=== PATIENT | female | born 1995 | race American Indian/Alaskan Native ===

== ENCOUNTER 2018-09-20 23:31 | Outpatient (CLI) | payer MEDICAID ==
--- NOTE | 2018-09-21 00:56 | Event Note ---
Date: 09/21/18 S: Pt presents to triage reporting strong contractions q5 minutes. Affirms positive movement. Denies LOF or vaginal bleeding O: FHT baseline 150 bpm, no decels, pos accels, mod variability Contractions q5 minutes lasting 60 seconds SVE /0 A: 23 yo at 37.2 wks EGA in early labor Membranes intact Coping well P: Recommend going home to rest with Benadryl Return to hospital with 3-1-1 contractions, SROM, or DFM Pt expresses understanding and agrees with plan
[2018-09-21] MEDS ORDERED: BENADRYL PO ONE (01:30)
== END 2018-09-21 01:31 | disposition home or self-care (01) ==
LOC: TRG 23:31
PROVIDERS: ATTEND Obstetrics & Gynecology
DX: O47.03 False labor before 37 completed weeks of gestation, third trimester (principal); Z3A.37 37 weeks gestation of pregnancy
CPT/HCPCS: 59025

== ENCOUNTER 2018-09-21 06:04 | Inpatient (IN) | payer MEDICAID ==
[2018-09-21] MEDS ORDERED: PHENERGAN PO PRN ×2 (06:34→20:10)
[2018-09-21] MEDS ORDERED: NARCAN 0.4 MG/1 ML IV PRN (06:34)
[2018-09-21] MEDS ORDERED: SUBLIMAZE IV PRN (06:34)
[2018-09-21] MEDS ORDERED: STADOL IV PRN (06:34)
[2018-09-21] MEDS ORDERED: NORMODYNE IV PRN (06:34)
[2018-09-21] MEDS ORDERED: BRETHINE IVP PRN (06:34)
[2018-09-21] MEDS ORDERED: AMPICILLIN/NS 2 GM/100 ML 2 GM/100 ML BAG IV ONE (06:34)
[2018-09-21] MEDS ORDERED: CALCIUM GLUCONATE IV ONE (06:34)
[2018-09-21] MEDS ORDERED: MINERAL OIL PO PRN (06:34)
[2018-09-21] MEDS ORDERED: MAGNESIUM SULFATE 4GM/100ML 4 GM/100 ML BAG IV ONE (06:34)
[2018-09-21] MEDS ORDERED: ZOFRAN IV PRN ×2 (06:34→20:10)
[2018-09-21] MEDS ORDERED: XYLOCAINE 2% INFILTRATI ONE (06:34)
[2018-09-21] MEDS ORDERED: NUBAIN IV PRN (06:34)
[2018-09-21] MEDS ORDERED: BRETHINE SUB-Q PRN (06:34)
[2018-09-21] MEDS ORDERED: PITOCin/NS 20 UNIT/1000ML DRIP 20 UNITS/1,000 ML BAG IV SCH ×3 (07:00→21:00)
[2018-09-21] MEDS ORDERED: PITOCin/NS 30 UNIT/500ML 30 UNITS/500 ML BAG IV SCH ×2 (07:00)
[2018-09-21] MEDS ORDERED: LACTATED RINGERS 1,000 ML IV SCH ×3 (07:00→21:00)
[2018-09-21] MEDS ORDERED: MAGNESIUM SULFATE 40GM/1000ML 40 GM/1,000 ML BAG IV SCH (07:00)
[2018-09-21 07:42] LABS: Hematocrit 31.8 % (30.3-42.9); Hemoglobin 10.6 gm/dl (10.1-14.3); Mean Corpuscular HGB Conc 33 % (30-34); Mean Corpuscular Volume 87 fl (79-97); Platelet Count 134 K/mm3 (140-440); Red Blood Count 3.66 M/mm3 (3.65-5.03); Red Cell Distribution Width 15.9 % (13.2-15.2)
[2018-09-21 07:57] LABS: BUN/Creatinine Ratio 3; Blood Urea Nitrogen 2 mg/dL (7-17); Calcium 9.1 mg/dL (8.4-10.2); Hemolysis Index 25
--- NOTE | 2018-09-21 08:29 | History and Physical Report ---
History of Present Illness Date of examination: 09/21/18 Date of admission: 09/21/18 06:46 Chief complaint: Contractions History of present illness: Pt is a 23 yo at 37.2 wks EGA who presents with contractions q3 minutes. She affirms positive FM and denies LOF or vaginal bleeding. Deneis GARY, scotomata, swelling. She received care at [facility]. Her has been complicated by Rubella equivocal status, quad screen positive for T21 with NIPT low risk, glucose intolerance, and GBS positive status. Past History Past Medical History: no pertinent history Past Surgical History: no surgical history Social history: no significant social history - Obstetrical History Expected Date of Delivery: 10/10/18 Actual Gestation: 37 Week(s) 2 Day(s) : 2 Para: 0 Hx # Term Pregnancies: 0 Number of Pregnancies: 0 Spontaneous Abortions: 1 Number of Living Children: 0 Medications and Allergies Allergies Allergy/AdvReac Type Severity Reaction Status Date / Time No Known Allergies Allergy Unverified 02/25/18 15:26 Home Medications Medication Instructions Recorded Confirmed Last Taken Type Ondansetron [Zofran Odt] 4 mg PO Q8HR PRN #10 tab.rapdis 02/25/18 Unknown Rx Active Meds: Active Medications Butorphanol Tartrate (Stadol) 2 mg IV Q2H PRN PRN Reason: Pain , Severe (7-10) Last Admin: 09/21/18 07:50 Dose: 2 mg Documented by: Ephedrine Sulfate (Ephedrine Sulfate) 10 mg IV Q2M PRN PRN Reason: Hypotension Fentanyl (Sublimaze) 100 mcg IV Q2H PRN PRN Reason: Labor Pain Hydralazine HCl (Apresoline) 5 mg IV Q30MIN PRN PRN Reason: Hypertension Oxytocin/Sodium Chloride (Pitocin/Ns 20 Unit/1000ml Drip) 20 units in 1,000 mls @ 125 mls/hr IV DIRECT POLY Oxytocin/Sodium Chloride (Pitocin/Ns 30 Unit/500ml) 30 units in 500 mls @ 1 mls/hr IV TITR POLY; Protocol Oxytocin/Sodium Chloride (Pitocin/Ns 30 Unit/500ml) 30 units in 500 mls @ 2 mls/hr IV TITR POLY; Protocol Lactated Ringer's (Lactated Ringers) 1,000 mls @ 125 mls/hr IV DIRECT POLY Last Admin: 09/21/18 07:45 Dose: 125 mls/hr Documented by: Oxytocin/Sodium Chloride (Pitocin/Ns 20 Unit/1000ml Drip) 20 units in 1,000 mls @ 0 mls/hr IV TITR POLY Magnesium Sulfate (Magnesium Sulfate 40gm/1000ml) 40 gm in 1,000 mls @ 25 mls/h r IV DIRECT POLY Ampicillin Sodium (Ampicillin/Ns 1 Gm/50 Ml) 1 gm in 50 mls @ 100 mls/hr IV Q4HR POLY; Protocol Lactated Ringer's (Lactated Ringers) 1,000 mls @ 125 mls/hr IV DIRECT POLY Labetalol HCl (Normodyne) 10 mg IV ONCE PRN PRN Reason: Hypertension Mineral Oil (Mineral Oil) 30 ml PO QHS PRN PRN Reason: Constipation Nalbuphine HCl (Nubain) 10 mg IV Q2H PRN PRN Reason: Pain, Moderate (4-6) Naloxone HCl (Narcan 0.4 Mg/1 Ml) 0.1 mg IV Q2MIN PRN PRN Reason: Res Rate </= 8 or 02 SAT < 92% Ondansetron HCl (Zofran) 4 mg IV Q8H PRN PRN Reason: Nausea And Vomiting Promethazine HCl (Phenergan) 25 mg PO Q6H PRN PRN Reason: Nausea And Vomiting Terbutaline Sulfate (Brethine) 0.25 mg SUB-Q ONCE PRN PRN Reason: Hyperstimulation/Hypertonicity Terbutaline Sulfate (Brethine) 0.25 mg IVP ONCE PRN PRN Reason: Hyperstimulation/Hypertonicity Review of Systems All systems: negative Eyes: no blurred vision Ears, nose, mouth and throat: no headache Cardiovascular: no chest pain, no shortness of breath, no leg edema Gastrointestinal: diarrhea, no nausea, no vomiting Genitourinary: no vaginal bleeding, no leakage of fluid Neurological: no seizures - Vital Signs Vital signs: Vital Signs Pulse BP 68 171/96 09/21/18 06:25 09/21/18 06:25 Temp Pulse Resp BP Pulse Ox 77 137/68 09/21/18 08:10 09/21/18 08:10 - Physical Exam Cardiovascular: Regular rate, Normal S1, Normal S2, No murmurs Lungs: Positive: Clear to auscultation, Normal air movement Abdomen: Positive: soft. Negative: distention, tenderness Genitourinary (Female): Positive: normal external genitalia, normal perenium Vagina: Positive: normal moisture Uterus: Positive: enlarged (gravid), normal contour Extremities: Positive: normal - Obstetrical FHR: category 1 Uterine Contraction Monitor Mode: External Cervical Dilatation: 3.5 Cervical Effacement Percentage: 90 station: 0 Uterine Contraction Frequency (min): 5 Uterine Contraction Pattern: Regular Uterine Tone Measurement Phase: Contraction Uterine Contraction Intensity: Strong/Firm Results Result Diagrams: 09/21/18 07:00 09/21/18 07:00 Abnormal lab results 09/21/18 09/21/18 Range/Units 07:00 07:00 WBC 11.2 H (4.5-11.0) K/mm3 RDW 15.9 H (13.2-15.2) % Plt Count 134 L (140-440) K/mm3 Potassium 3.0 L (3.6-5.0) mmol/L BUN 2 L (7-17) mg/dL Glucose 103 H (65-100) mg/dL All other labs normal. Assessment and Plan A: 23 yo at 37.2 wks EGA Early labor Preeclampsia with severe features SROM in triage, clear fluid GBS positive P: Admit to L&D Initiate Magnesium Sulfate and rescue Labetalol Ampicillin prophylaxis Monitor closely Augment with Pitocin Pain relief as requested Anticipate
[2018-09-21] MEDS ORDERED: BENADRYL PO PRN ×2 (09:00→20:10)
[2018-09-21] MEDS ORDERED: AMPICILLIN/NS 1 GM/50 ML 1 GM/50 ML BAG IV SCH (10:44)
[2018-09-21] MEDS ORDERED: MARCAINE 0.25% INFILTRATI ONE ×2 (10:46→17:09)
--- NOTE | 2018-09-21 11:09 | Anesthesia Consultation ---
Anesthesia Consult and Med Hx Date of service: 09/21/18 - Airway Anesthetic Teeth Evaluation: Good ROM Head & Neck: Adequate Mental/Hyoid Distance: Adequate Mallampati Class: Class II Intubation Access Assessment: Good - Pulmonary Exam CTA: Yes - Cardiac Exam Cardiac Exam: RRR - Pre-Operative Health Status ASA Pre-Surgery Classification: ASA2, Emergency Proposed Anesthetic Plan: Epidural - Pulmonary Hx Asthma: No COPD: No Hx Pneumonia: No - Cardiovascular System Hx Hypertension: No - Central Nervous System Hx Seizures: No Hx Psychiatric Problems: No - Endocrine Hx Renal Disease: No Hx End Stage Renal Disease: No Hx Hypothyroidism: No Hx Hyperthyroidism: No - Hematic Hx Anemia: No Hx Sickle Cell Disease: No - Other Systems Hx Alcohol Use: No
[2018-09-21] MEDS ORDERED: NARCAN 2 MG/2 ML IV PRN (11:10)
[2018-09-21] MEDS ORDERED: fentaNYL-BUPIV 2 MCG/ML-0.125% 200 MCG/100 ML BAG EPIDURAL SCH (12:00)
--- NOTE | 2018-09-21 17:58 | Event Note ---
Date: 09/21/18 Pt's SVE is 780/0 swollen anterior lip. Discussed r/b/a of IUPC, pt elects for it. Placed IUPC without blood flashback, pt tolerated well, FHT category 1 throughout.
[2018-09-21] MEDS ORDERED: BENADRYL ONE (19:11)
[2018-09-21] MEDS: APRESOLINE IV PRN ×3 (19:13→21:55)
[2018-09-21] MEDS ORDERED: CYTOTEC ONE (19:52)
[2018-09-21] MEDS ORDERED: CYTOTEC PR ONE (19:55)
--- NOTE | 2018-09-21 20:01 | Procedure Note ---
OB Delivery Note - Delivery Date of Delivery: 09/21/18 Surgeon: DARLENE BRADFORD ([facility]) Estimated blood loss: 200cc - Vaginal Delivery presentation: vertex Delivery position: OA Intrapartum events: PROM->1hr before delivery, preeclampsia Delivery induction: none Delivery augmentation: pitocin Delivery monitor: external FHT, external uterine Route of delivery: Delivery placenta: expressed Delivery cord: 3 umbilical vessels Episiotomy: none Delivery laceration: none Anesthesia: epidural Delivery comments: Excellent maternal effort resulted in of viable male infant at 1939. Head delivered OA, restituted LOT. Shoulders followed easily. Cord clamped and cut by FOB. Placenta delivered intact at 194. Minimal bleeding noted. Fundus boggy after delivery of placenta, ATTILA firm. Pitocin IV administered. No lacerations noted. Fundus then firm, Cytotec 800mcg administered RI for prophylaxis of delayed hemorrhage. - A at 1 minute: 8 at 5 minutes: 9 Infant Gender: Male
[2018-09-21] MEDS ORDERED: LANSINOH TP PRN (20:10)
[2018-09-21] MEDS ORDERED: DULCOLAX PR PRN (20:10)
[2018-09-21] MEDS ORDERED: TUCKS PAD TP PRN (20:10)
[2018-09-21] MEDS ORDERED: TYLENOL PO PRN (20:10)
[2018-09-21] MEDS ORDERED: MILK OF MAGNESIA PO PRN (20:10)
[2018-09-21] MEDS ORDERED: PHENERGAN PR PRN (20:10)
[2018-09-21] MEDS ORDERED: SODIUM CHLORIDE FLUSH SYRINGE 10 ML IV NR (21:00)
[2018-09-22] MEDS ORDERED: M-M-R II VACCINE SUB-Q ONE (06:00)
--- NOTE | 2018-09-22 06:58 | Post Anesthesia Evaluation ---
- Post Anesthesia Evaluation Patient Participated: Yes Airway Patent: Yes Stable Respiratory Function: Yes Nausea/Vomiting: No Temp > 96.8F: Yes Pain Manageable: Yes Adequeate Hydration: Yes Anesthesia Complications: No Block Receding Appropriately: Yes Patient on Ventilator: No
--- NOTE | 2018-09-22 08:04 | Progress Note ---
Assessment and Plan A/P PPD1 s/p pree E on mag until 2pm ( duration of 24hrs PP) mag levels and neuro checks PIH w/u await PP cbc ( uterine atony ) Subjective - Subjective Date of service: 09/22/18 Principal diagnosis: , severe Pre E Patient reports: appetite normal, voiding normally, pain well controlled, flatus, ambulating normally [place]: doing well Objective - Vital Signs Latest vital signs: Vital Signs Temp Pulse BP Pulse Ox 09/22/18 07:47 81 145/73 09/22/18 07:32 88 163/78 09/22/18 07:17 85 162/78 09/22/18 07:02 93 H 157/74 09/22/18 06:47 85 158/74 09/22/18 06:32 96 H 150/70 09/22/18 06:17 89 148/67 09/22/18 06:02 96 H 154/68 09/22/18 05:47 100 H 137/63 09/22/18 05:32 108 H 138/70 09/22/18 05:17 96 H 145/67 09/22/18 05:02 113 H 137/67 09/22/18 04:47 100 H 150/67 09/22/18 04:32 103 H 147/65 09/22/18 04:17 105 H 153/66 09/22/18 04:02 106 H 152/69 09/22/18 03:47 106 H 149/63 09/22/18 03:32 103 H 147/65 09/22/18 03:17 113 H 156/67 09/22/18 03:02 116 H 157/69 09/22/18 02:47 115 H 156/72 09/22/18 02:32 109 H 154/72 09/22/18 02:17 103 H 152/75 09/22/18 02:02 130 H 150/70 09/22/18 01:47 120 H 161/72 09/22/18 01:32 116 H 159/72 09/22/18 01:17 114 H 155/70 09/22/18 01:02 114 H 155/68 09/22/18 00:47 126 H 159/69 09/22/18 00:32 123 H 156/70 09/22/18 00:17 116 H 156/71 09/22/18 00:02 108 H 164/76 09/21/18 23:47 125 H 158/67 09/21/18 23:32 117 H 160/70 09/21/18 23:17 113 H 158/69 09/21/18 23:02 130 H 143/62 09/21/18 22:47 123 H 137/61 09/21/18 22:32 126 H 152/62 09/21/18 22:17 126 H 157/71 09/21/18 22:02 120 H 158/74 09/21/18 21:55 108 H 172/82 09/21/18 21:47 108 H 172/82 09/21/18 21:32 125 H 170/79 09/21/18 21:17 118 H 160/73 09/21/18 21:02 112 H 160/95 09/21/18 20:47 121 H 187/97 09/21/18 20:34 121 H 184/89 09/21/18 20:32 131 H 227/135 09/21/18 20:17 126 H 179/99 09/21/18 20:04 110 H 171/102 09/21/18 19:47 114 H 179/97 09/21/18 19:34 120 H 176/97 09/21/18 19:22 112 H 100 09/21/18 19:17 114 H 98 09/21/18 19:13 98 H 168/84 09/21/18 19:12 108 H 99 09/21/18 19:07 109 H 98 09/21/18 19:02 103 H 99 09/21/18 18:59 96 H 163/79 09/21/18 18:57 96 H 100 09/21/18 18:56 98 H 168/84 09/21/18 18:52 110 H 98 09/21/18 18:47 105 H 99 09/21/18 18:42 96 H 99 09/21/18 18:37 103 H 100 09/21/18 18:32 97 H 100 09/21/18 18:27 94 H 99 09/21/18 18:26 93 H 145/77 09/21/18 18:22 94 H 100 09/21/18 18:17 94 H 100 09/21/18 18:12 99 H 100 09/21/18 18:07 93 H 99 09/21/18 18:02 91 H 99 09/21/18 17:57 95 H 99 09/21/18 17:56 98 H 149/87 09/21/18 17:52 94 H 99 09/21/18 17:47 88 100 09/21/18 17:42 91 H 100 09/21/18 17:37 92 H 100 09/21/18 17:32 98 H 99 09/21/18 17:27 97 H 100 09/21/18 17:26 90 133/73 09/21/18 17:22 95 H 100 09/21/18 17:17 105 H 100 09/21/18 17:12 98 H 98 09/21/18 17:09 100 H 165/79 09/21/18 17:07 105 H 100 09/21/18 17:02 111 H 100 09/21/18 16:57 93 H 99 09/21/18 16:52 94 H 99 09/21/18 16:47 101 H 98 09/21/18 16:42 91 H 97 09/21/18 16:37 89 97 09/21/18 16:32 89 97 09/21/18 16:27 89 99 09/21/18 16:23 89 165/85 09/21/18 16:22 105 H 98 09/21/18 16:17 109 H 98 09/21/18 16:13 94 H 165/86 09/21/18 16:12 96 H 99 09/21/18 16:07 96 H 98 09/21/18 16:02 92 H 98 09/21/18 15:58 94 H 158/82 09/21/18 15:57 99 H 98 09/21/18 15:52 107 H 99 09/21/18 15:47 104 H 98 09/21/18 15:43 94 H 158/80 09/21/18 15:42 98 H 99 09/21/18 15:38 99 H 148/76 09/21/18 15:37 101 H 99 09/21/18 15:32 106 H 99 09/21/18 15:28 94 H 175/94 09/21/18 15:27 94 H 97 09/21/18 15:22 92 H 98 09/21/18 15:17 98 H 99 09/21/18 15:13 95 H 165/87 09/21/18 15:12 100 H 98 09/21/18 15:07 98 H 100 09/21/18 15:02 102 H 100 09/21/18 15:00 95 H 168/91 09/21/18 14:57 99 H 99 09/21/18 14:52 101 H 100 09/21/18 14:51 100 H 94 09/21/18 14:47 99 H 100 09/21/18 14:43 83 157/88 09/21/18 14:42 87 100 09/21/18 14:37 87 100 09/21/18 14:32 82 100 09/21/18 14:28 81 158/88 09/21/18 14:27 84 100 09/21/18 14:22 89 100 09/21/18 14:17 92 H 100 09/21/18 14:14 88 159/89 09/21/18 14:12 90 100 09/21/18 14:07 100 H 100 09/21/18 14:02 105 H 99 09/21/18 13:59 87 154/78 09/21/18 13:58 93 H 174/86 09/21/18 13:57 84 100 09/21/18 13:52 79 100 09/21/18 13:47 83 100 09/21/18 13:43 80 159/80 09/21/18 13:42 80 99 09/21/18 13:37 83 100 09/21/18 13:32 107 H 99 09/21/18 13:28 82 142/86 09/21/18 13:27 85 99 09/21/18 13:22 90 100 09/21/18 13:17 91 H 100 09/21/18 13:13 93 H 150/81 94 09/21/18 13:12 84 99 09/21/18 13:07 81 100 09/21/18 13:02 76 100 09/21/18 12:58 76 145/72 09/21/18 12:57 77 100 09/21/18 12:52 76 100 09/21/18 12:47 85 100 09/21/18 12:44 75 132/72 09/21/18 12:42 84 100 09/21/18 12:37 84 100 09/21/18 12:32 81 99 09/21/18 12:29 83 88 09/21/18 12:28 75 136/64 09/21/18 12:27 78 98 09/21/18 12:22 75 99 09/21/18 12:17 77 99 09/21/18 12:13 75 136/65 09/21/18 12:12 75 98 09/21/18 12:07 77 99 09/21/18 12:02 71 99 09/21/18 11:58 72 127/62 09/21/18 11:57 72 99 09/21/18 11:52 71 99 09/21/18 11:47 70 99 09/21/18 11:43 70 130/61 09/21/18 11:42 72 99 09/21/18 11:37 69 99 09/21/18 11:32 71 98 09/21/18 11:28 69 129/60 09/21/18 11:27 71 99 09/21/18 11:22 70 98 09/21/18 11:17 74 98 09/21/18 11:12 73 122/57 99 09/21/18 11:09 89 146/66 09/21/18 11:07 91 H 99 09/21/18 11:06 97 H 151/84 09/21/18 11:03 96 H 166/89 09/21/18 11:02 100 H 99 09/21/18 10:57 93 H 100 09/21/18 10:55 78 178/106 09/21/18 10:52 85 100 09/21/18 10:45 77 174/86 09/21/18 10:38 77 167/86 09/21/18 10:29 75 174/89 09/21/18 10:12 90 182/94 09/21/18 10:11 97 H 186/91 09/21/18 09:39 73 156/78 09/21/18 08:50 98.0 F 09/21/18 08:40 68 148/76 09/21/18 08:37 73 136/75 09/21/18 08:10 77 137/68 Intake and Output 09/21/18 09/22/18 09/22/18 23:59 07:59 15:59 Intake Total 615 2700 Output Total 3500 3700 Balance -2885 -1000 Intake: IV 375 1000 MAGNESIUM SULFATE 40GM/ 150 400 1000ML 40 gm In 1,000 ml @ 1 GM/HR 25 mls/hr IV DIRECT POLY Rx#:[id number] PITOCin/NS 20 UNIT/1000ML 225 600 DRIP 20 units In 1,000 ml @ 250 mls/hr IV DIRECT POLY Rx#:[id number] Oral 240 1700 Output: Urine 3500 3700 Indwelling Catheter 3500 3700 Other: Total, Intake Amount 240 250 Total, Output Amount 400 300 Estimated Blood Loss 200 - Exam Breasts: Present: normal Cardiovascular: Present: Regular rate, Normal S1 Lungs: Present: Clear to auscultation, Normal air movement Abdomen: Present: normal appearance, soft, normal bowel sounds. Absent: distention, tenderness, guarding Vulva: both: normal Uterus: Present: normal, firm, fundal height below umbilicus. Absent: bogginess, tenderness Extremities: Present: normal Deep Tendon Reflex Grade: Normal +2 - Labs Labs: Abnormal lab results 09/21/18 09/22/18 Range/Units 20:33 02:12 Magnesium 4.20 H 5.30 H (1.7-2.3) mg/dL
[2018-09-22 08:22] LABS: Hematocrit 31.1 % (30.3-42.9); Hemoglobin 10.5 gm/dl (10.1-14.3); Mean Corpuscular HGB Conc 34 % (30-34); Mean Corpuscular Volume 86 fl (79-97); Platelet Count 149 K/mm3 (140-440); Red Blood Count 3.61 M/mm3 (3.65-5.03); Red Cell Distribution Width 16.4 % (13.2-15.2)
[2018-09-22] MEDS: PERCOCET 5/325 PO PRN ×2 (08:27→19:48)
[2018-09-22] MEDS: NORMODYNE PO SCH ×2 (08:28→21:53)
[2018-09-22 08:43] LABS: Alanine Aminotransferase 11 units/L (7-56); Uric Acid 4.5 mg/dL (3.5-7.6)
[2018-09-22] MEDS: IBUPROFEN PO SCH ×3 (09:00→23:57)
[2018-09-22] MEDS: PRENATAL VITAMIN PO SCH (09:52)
[2018-09-22] MEDS: FEOSOL PO SCH ×2 (09:53→21:52)
[2018-09-22] MEDS: COLACE PO SCH ×2 (10:00→21:52)
[2018-09-22] MEDS ORDERED: SODIUM CHLORIDE FLUSH SYRINGE 10 ML IV PRN (13:00)
[2018-09-22] MEDS ORDERED: TYLENOL PO PRN (13:30)
[2018-09-22] MEDS ORDERED: TUCKS PAD TP PRN (13:30)
[2018-09-22] MEDS ORDERED: ZOFRAN IV PRN (13:30)
[2018-09-22] MEDS ORDERED: LANSINOH TP PRN (13:30)
[2018-09-22] MEDS ORDERED: PHENERGAN PR PRN (13:30)
[2018-09-22] MEDS ORDERED: PHENERGAN PO PRN (13:30)
[2018-09-22] MEDS ORDERED: BENADRYL PO PRN (14:00)
[2018-09-22] MEDS ORDERED: ANUCORT-HC PR PRN (14:00)
[2018-09-22] MEDS ORDERED: TORADOL IV PRN (14:00)
[2018-09-22] MEDS ORDERED: IBUPROFEN PO SCH (14:00)
[2018-09-22] MEDS ORDERED: NORCO 5/325 PO PRN (14:00)
[2018-09-22] MEDS ORDERED: MILK OF MAGNESIA PO PRN (22:00)
[2018-09-22] MEDS ORDERED: DULCOLAX PR PRN (22:00)
[2018-09-23 00:55] LABS: Hematocrit 27.4 % (30.3-42.9)
[2018-09-23 01:41] LABS: Bilirubin,Urine NEG (Negative); Blood,Urine LG (Negative); Color,Urine Yellow (Yellow); Hyaline Casts,Urine 2 /LPF; Mucus,Urine FEW /HPF; Protein,Urine <15 mg/dL mg/dL (Negative); Urobilinogen,Urine < 2.0 mg/dL (<2.0)
[2018-09-23 01:44] LABS: RBC,Urine > 182.0 /HPF (0.0-6.0)
[2018-09-23] MEDS: IBUPROFEN PO SCH ×3 (05:55→22:20)
[2018-09-23] MEDS ORDERED: BOOSTRIX IM ONE (06:00)
--- NOTE | 2018-09-23 08:17 | Progress Note ---
Assessment and Plan A/P PPD2 s/p pree E s/p mag on labetolol for BP control continue to watch BP consider d/c home with f/u in 1 weeks tomorrow as BP revi ewed Subjective - Subjective Date of service: 09/23/18 Principal diagnosis: , severe Pre E Patient reports: appetite normal, voiding normally, pain well controlled, flatus, ambulating normally : doing well Objective - Vital Signs Latest vital signs: Vital Signs Temp Pulse Resp BP BP Pulse Ox 09/23/18 05:55 20 09/23/18 05:00 98.3 F 71 16 134/75 98 09/22/18 23:57 20 09/22/18 23:31 98.5 F 78 16 129/68 98 09/22/18 21:53 72 155/95 09/22/18 20:37 98.4 F 79 20 149/94 99 09/22/18 20:07 88 158/90 09/22/18 19:57 88 166/88 09/22/18 19:34 97.4 F L 18 09/22/18 19:28 90 141/87 09/22/18 18:57 88 157/103 09/22/18 18:27 85 156/99 09/22/18 17:57 90 150/95 09/22/18 17:27 85 133/87 09/22/18 16:57 88 130/89 09/22/18 16:31 86 144/83 09/22/18 15:57 88 134/85 09/22/18 15:27 96 H 146/68 09/22/18 14:57 76 136/76 09/22/18 14:27 88 139/84 09/22/18 13:57 83 133/70 09/22/18 13:27 89 130/70 09/22/18 12:57 86 120/56 09/22/18 12:27 78 129/58 09/22/18 11:57 82 132/79 09/22/18 11:27 84 131/75 09/22/18 10:57 90 131/67 09/22/18 10:27 87 132/65 09/22/18 09:57 81 142/73 09/22/18 09:47 86 135/71 09/22/18 09:27 85 139/91 09/22/18 08:57 85 160/94 09/22/18 08:28 166/104 09/22/18 08:27 16 09/22/18 08:25 90 166/104 09/22/18 08:17 84 145/74 Intake and Output 09/22/18 09/23/18 09/23/18 23:59 07:59 15:59 Intake Total 240 Output Total 1600 Balance -1600 240 Intake: Intake, Free Water 240 Output: Urine 1600 Indwelling Catheter 1000 Void 600 Other: Total, Output Amount 600 # Voids Void 1 1 - Exam Breasts: Present: normal Cardiovascular: Present: Regular rate, Normal S1 Lungs: Present: Clear to auscultation, Normal air movement Abdomen: Present: normal appearance, soft, normal bowel sounds. Absent: distention, tenderness, guarding Uterus: Present: normal, firm, fundal height below umbilicus. Absent: bogginess, tenderness Extremities: Present: normal Deep Tendon Reflex Grade: Normal +2 Incision: Present: normal, dry - Labs Labs: Abnormal lab results 09/22/18 09/22/18 09/22/18 Range/Units 00:50 08:12 08:12 WBC 16.8 H (4.5-11.0) K/mm3 RBC 3.61 L (3.65-5.03) M/mm3 Hgb (10.1-14.3) gm/dl Hct (30.3-42.9) % RDW 16.4 H (13.2-15.2) % Creatinine (0.7-1.2) mg/dL Magnesium 5.90 H (1.7-2.3) mg/dL Lactate Dehydrogenase (91-180) units/L Urine WBC (Auto) 26.0 H (0.0-6.0) /HPF 09/22/18 09/22/18 09/22/18 Range/Units 08:12 14:37 21:13 WBC (4.5-11.0) K/mm3 RBC (3.65-5.03) M/mm3 Hgb (10.1-14.3) gm/dl Hct (30.3-42.9) % RDW (13.2-15.2) % Creatinine 0.6 L (0.7-1.2) mg/dL Magnesium 6.40 H 4.60 H (1.7-2.3) mg/dL Lactate Dehydrogenase 467 H (91-180) units/L Urine WBC (Auto) (0.0-6.0) /HPF 09/23/18 Range/Units 00:45 WBC (4.5-11.0) K/mm3 RBC (3.65-5.03) M/mm3 Hgb 9.0 L (10.1-14.3) gm/dl Hct 27.4 L (30.3-42.9) % RDW (13.2-15.2) % Creatinine (0.7-1.2) mg/dL Magnesium (1.7-2.3) mg/dL Lactate Dehydrogenase (91-180) units/L Urine WBC (Auto) (0.0-6.0) /HPF
[2018-09-23] MEDS: NORMODYNE PO SCH ×2 (09:40→22:20)
[2018-09-23] MEDS: PRENATAL VITAMIN PO SCH (09:40)
[2018-09-23] MEDS: FEOSOL PO SCH ×3 (09:41→22:20)
[2018-09-23] MEDS: COLACE PO SCH ×2 (09:42→22:21)
[2018-09-23] MEDS ORDERED: M-M-R II VACCINE SUB-Q ONE (11:00)
[2018-09-24] MEDS: IBUPROFEN PO SCH ×2 (04:26→10:21)
[2018-09-24] MEDS ORDERED: BOOSTRIX IM ONE (06:00)
--- NOTE | 2018-09-24 08:38 | Progress Note ---
Assessment and Plan A: PPD3 s/p mag sulfate for preeclampsia with severe features VSS, CBC stable P: Discharge to home today PO Labetalol rx Return to clinic in 1 week for BP check Reviewed preeclampsia symptoms and when to report to hospital Subjective - Subjective Date of service: 09/24/18 Principal diagnosis: , severe Pre E Interval history: Pt is PPD3 s/p following augmentation of labor for severe preeclampsia at term. No lacs, EBL 200. Patient reports: appetite normal, voiding normally, pain well controlled, ambulating normally [place]: doing well, bottle feeding Objective - Vital Signs Latest vital signs: Vital Signs Temp Pulse Resp BP BP Pulse Ox 09/24/18 00:30 98.8 F 67 18 123/79 09/23/18 22:20 77 141/71 09/23/18 16:54 99.1 F 79 16 150/86 99 09/23/18 16:32 20 Intake and Output 09/23/18 09/24/18 09/24/18 23:59 07:59 15:59 Intake Total 300 Balance 300 Intake: Intake, Free Water 300 - Exam Cardiovascular: Present: Regular rate, Normal S1, Normal S2, No murmurs Lungs: Present: Clear to auscultation, Normal air movement Abdomen: Present: normal appearance, soft. Absent: distention, tenderness, guarding Uterus: Present: normal, firm, fundal height below umbilicus Extremities: Present: normal
--- NOTE | 2018-09-24 08:39 | Discharge Summary ---
Providers - Providers Date of Admission: 09/21/18 06:46 Date of discharge: 09/24/18 Attending physician: QUINN URRUTIA 09/21/18 20:12 Consult to Social Work Instructor [CONS] Routine Reason For Exam: assistance with , SNS Primary care physician: QUINN URRUTIA Hospitalization Reason for admission: other (Preeclampsia with severe features in early labor) Delivery: Episiotomy: none Laceration: none Other procedures: none complications: none Discharge diagnosis: IUP at term delivered Terry baby: male Condition at discharge: Good Disposition: DC-01 TO HOME OR SELFCARE Plan - Discharge Medications Prescriptions: Docusate Sodium [Colace] 100 mg PO BID PRN #30 capsule PRN Reason: Constipation Ferrous Sulfate [Ferrous Sulfate 324 MG] 324 mg PO BID #60 tablet. Labetalol [Labetalol 200mg TAB] 200 mg PO BID #60 tablet Ibuprofen [Motrin] 800 mg PO Q8HR PRN #90 tablet PRN Reason: Pain, Moderate (4-6) - Provider Discharge Summary Activity: routine, no sex for 6 weeks, no heavy lifting 4 weeks, no strenuous exercise Diet: routine Instructions: routine Additional instructions: [] Smoking cessation referral if applicable(refer to patient education folder for contact #) [] Refer to [facility] Booklet Call your doctor immediately for: * Fever > 100.5 * Heavy vaginal bleeding ( >1 pad per hour) * Severe persistent headache * Shortness of breath * Reddened, hot, painful area to leg or breast * Drainage or odor from incision. * Keep incision clean and dry at all times and follow doctor's instructions regarding bathing/showering - Follow up plan Follow up: QUINN URRUTIA MD [Primary Care Provider] - 7 Days
[2018-09-24] MEDS: COLACE PO SCH (10:19)
[2018-09-24] MEDS: FEOSOL PO SCH (10:19)
[2018-09-24] MEDS: PRENATAL VITAMIN PO SCH (10:20)
[2018-09-24] MEDS: NORMODYNE PO SCH (10:23)
[2018-09-24 14:41] VITALS: BP 114/68
== END 2018-09-24 15:22 | disposition home or self-care (01) | DRG 774 ==
LOC: TRG 06:04 → LD 06:46 → OB 09-22 20:21
PROVIDERS: ADMIT Obstetrics & Gynecology; ATTEND Obstetrics & Gynecology
PROC: 10E0XZZ Delivery of Products of Conception, External Approach (ICD-10-PCS; principal; 2018-09-21)
PROC: 10H07YZ Insertion of Other Device into Products of Conception, Via Natural or Artificial Opening (ICD-10-PCS; 2018-09-21)
PROC: 3E0R3BZ Introduction of Anesthetic Agent into Spinal Canal, Percutaneous Approach (ICD-10-PCS; 2018-09-21)
PROC: 00HU33Z Insertion of Infusion Device into Spinal Canal, Percutaneous Approach (ICD-10-PCS; 2018-09-21)
PROC: 3E0234Z Introduction of Serum, Toxoid and Vaccine into Muscle, Percutaneous Approach (ICD-10-PCS; 2018-09-22)
PROC: 3E0234Z Introduction of Serum, Toxoid and Vaccine into Muscle, Percutaneous Approach (ICD-10-PCS; 2018-09-23)
DX: O99.824 Streptococcus B carrier state complicating childbirth (principal); O14.14 Severe pre-eclampsia complicating childbirth; O42.92 Full-term premature rupture of membranes, unspecified as to length of time between rupture and onset of labor; Z3A.37 37 weeks gestation of pregnancy; Z37.0 Single live birth; Z23 Encounter for immunization
CPT/HCPCS: 36415; 59025; 80048; 81001; 82565; 83615; 83735; 84450; 84460; 84550; 85014; 85018; 85027; 86592; 86850; 86900; 86901; 87086; 88307; 90715; G0378; J0290; J0360; J0595; J1200; J2590; J3010; J3475; J7120

== ENCOUNTER 2019-01-07 09:25 | Emergency (ER) | payer SELFPAY ==
[2019-01-07 09:32] VITALS: BP 142/81
[2019-01-07] MEDS ORDERED: KETOROLAC 60 MG/2 ML INJ IM ONE (10:18)
--- NOTE | 2019-01-07 10:30 | Emergency Department Report ---
ED General Adult HPI - General Chief complaint: Rectal Pain Stated complaint: BOTTOM HURTING BADLY Source: patient Mode of arrival: Ambulatory Limitations: No Limitations - History of Present Illness Initial comments: 23yo BF states that she has had discomfort of her buttock for a week but pain became severe as of yesterday. She states that the pain is a 10. She further states that the pain is worse with movement and when lying down. -: Gradual, week(s) Location: buttocks Radiation: non-radiation Severity scale (0 -10): 10 Quality: aching, sharp Consistency: constant Improves with: immobilization Worsens with: movement Associated Symptoms: denies other symptoms Treatments Prior to Arrival: none - Related Data Previous Rx's Medication Instructions Recorded Last Taken Type Docusate Sodium [Colace] 100 mg PO BID PRN #30 capsule 09/24/18 Unknown Rx Ferrous Sulfate [Ferrous Sulfate 324 mg PO BID #60 tablet. 09/24/18 Unknown Rx 324 MG] Ibuprofen [Motrin] 800 mg PO Q8HR PRN #90 tablet 09/24/18 Unknown Rx Labetalol [Labetalol 200mg TAB] 200 mg PO BID #60 tablet 09/24/18 Unknown Rx Clindamycin [Clindamycin CAP] 300 mg PO Q8H 10 Days #30 cap 01/07/19 Unknown Rx HYDROcodone/APAP 5-325 [Swain 1 each PO Q4HR PRN #8 tablet 01/07/19 Unknown Rx 5/325] Allergies Allergy/AdvReac Type Severity Reaction Status Date / Time No Known Allergies Allergy Unverified 02/25/18 15:26 ED Review of Systems ROS: Stated complaint: BOTTOM HURTING BADLY Other details as noted in HPI Comment: All other systems reviewed and negative Skin: as per HPI ED Past Medical Hx - Past Medical History Previous Medical History?: No Hx Hypertension: No Hx Congestive Heart Failure: No Hx Diabetes: No Hx Deep Vein Thrombosis: No Hx Renal Disease: No Hx Sickle Cell Disease: No Hx Seizures: No Hx Asthma: No Hx COPD: No Hx HIV: No - Surgical History Past Surgical History?: No - Social History Smoking Status: Never Smoker Substance Use Type: Marijuana - Medications Home Medications: Home Medications Medication Instructions Recorded Confirmed Last Taken Type Docusate Sodium [Colace] 100 mg PO BID PRN #30 capsule 09/24/18 Unknown Rx Ferrous Sulfate [Ferrous Sulfate 324 mg PO BID #60 tablet. 09/24/18 Unknown Rx 324 MG] Ibuprofen [Motrin] 800 mg PO Q8HR PRN #90 tablet 09/24/18 Unknown Rx Labetalol [Labetalol 200mg TAB] 200 mg PO BID #60 tablet 09/24/18 Unknown Rx Clindamycin [Clindamycin CAP] 300 mg PO Q8H 10 Days #30 cap 01/07/19 Unknown Rx HYDROcodone/APAP 5-325 [Swain 1 each PO Q4HR PRN #8 tablet 01/07/19 Unknown Rx 5/325] ED Physical Exam - General Limitations: No Limitations General appearance: alert, in no apparent distress - Head Head exam: Present: atraumatic, normocephalic - Eye Eye exam: Present: normal appearance, PERRL, EOMI - ENT ENT exam: Present: normal exam, normal orophraynx - Neck Neck exam: Present: normal inspection, full ROM. Absent: tenderness - Respiratory Respiratory exam: Present: normal lung sounds bilaterally, respiratory distress. Absent: chest wall tenderness - Cardiovascular Cardiovascular Exam: Present: regular rate, normal rhythm, normal heart sounds - GI/Abdominal GI/Abdominal exam: Present: soft. Absent: distended, tenderness - Rectal Rectal exam: Present: normal rectal tone, tenderness (appreciated at the gluteal cleft and swelling present as well). Absent: bloody stool, hemorrhoids - Extremities Exam Extremities exam: Present: normal inspection, full ROM. Absent: tenderness - Back Exam Back exam: Present: normal inspection, full ROM, tenderness (lower midback) - Neurological Exam Neurological exam: Present: alert, altered, oriented X3 - Psychiatric Psychiatric exam: Present: normal affect, normal mood. Absent: depressed - Skin Skin exam: Present: warm, dry, other (inflamed at gluteal cleft) ED Course Vital Signs 01/07/19 09:29 Temperature 97.5 F L Pulse Rate 89 Respiratory 16 Rate Blood Pressure 142/81 O2 Sat by Pulse 100 Oximetry - Procedure Description Procedures done: I&D of the gluteal cleft. Pt tolerated procedure well. Pt was given Toradol injection, followed by Lidocaine and Epinephrine at the site for local anesthesia. The site was packed and a bandaghe was placed over it. She verbalized that pressure was released and pain decreased. ED Medical Decision Making - Medical Decision Making 23yo BF states that she has had discomfort of her buttock for a week but pain became severe as of yesterday. She states that the pain is a 10. She further states that the pain is worse with movement and when lying down. I&D performed. Pt was given Toradol injection, followed by Lidocaine and Epinephrine at the site for local anesthesia. The site was packed and a bandaghe was placed over it. Pt tolerated procedure well, she was instructed to have PCP reasess wound in 3 days, take medications as instructed and to f/u with ED as needed. Pt was instructed to not drink, drive, lift heavy objects or operate heavy equipment while using Swain. Critical care attestation.: If time is entered above; I have spent that time in minutes in the direct care of this critically ill patient, excluding procedure time. ED Disposition Clinical Impression: Pilonidal abscess Disposition: TO HOME OR SELFCARE Is pt being admited?: No Does the pt Need Aspirin: No Condition: Stable Instructions: Abscess (ED) Additional Instructions: Pt tolerated procedure well, she was instructed to have PCP reasess wound in 3 days, take medications as instructed and to f/u with ED as needed. Pt was instructed to not drink, drive, lift heavy objects or operate heavy equipment while using Swain. Prescriptions: Clindamycin [Clindamycin CAP] 300 mg PO Q8H 10 Days #30 cap HYDROcodone/APAP 5-325 [Swain 5/325] 1 each PO Q4HR PRN #8 tablet PRN Reason: Pain Referrals: [facility] [Outside] - 3-5 Days Time of Disposition: 11:52
[2019-01-07] MEDS ORDERED: LIDOCAINE 1%/EPINEPHRINE 1:100,000 VIAL (20 ML) INFILTRATI NR (11:00)
== END 2019-01-07 12:06 | disposition home or self-care (01) ==
LOC: ED 09:25
DX: L05.01 Pilonidal cyst with abscess (principal); F12.10 Cannabis abuse, uncomplicated; Z79.1 Long term (current) use of non-steroidal anti-inflammatories (NSAID); Z79.899 Other long term (current) drug therapy
CPT/HCPCS: 10080; 96372; 99282; J1885

== ENCOUNTER 2019-01-13 17:12 | Emergency (ER) | payer SELFPAY ==
[2019-01-13 17:38] VITALS: BP 121/78
== END 2019-01-13 21:02 | disposition left against medical advice (07) ==
LOC: ED 17:12
DX: L02.31 Cutaneous abscess of buttock (principal); Z53.21 Procedure and treatment not carried out due to patient leaving prior to being seen by health care provider

== ENCOUNTER 2019-01-14 08:48 | Emergency (ER) | payer SELFPAY ==
[2019-01-14] MEDS ORDERED: LIDOCAINE 1%/EPINEPHRINE 1:100,000 VIAL (20 ML) INFILTRATI ONE (10:16)
[2019-01-14] MEDS ORDERED: MORPHINE 4 MG/1 ML INJ IM ONE (10:16)
--- NOTE | 2019-01-14 10:16 | Emergency Department Report ---
Abscess Boil HPI - HPI Chief Complaint: Skin/Abscess/Foreign Body Stated Complaint: BOIL ON BUTTOCK Time Seen by Provider: 01/14/19 10:06 Duration: 1 Week Location: Sacral/Pilonidal Severity: Severe History: Yes Pain, Yes Purulent Drainage, No Fever, No Numbness, No Foreign Body, No Previous History, No Insect Bite HPI: 23-year-old female presents to the ER today complaining of abscess to area. Patient states that it started about one week ago. He was seen here a couple days ago for the same abscess. Had an I&D done, she states she was given a "shot" and discharged home with clindamycin and hydrocodone. Patient returns today complaining that she still has significant pain to the pilonidal area and swelling. She reports mild drainage from wound but nothing significant. She states she is taking the clindamycin as prescribed. She has completed hydrocodone, but was not really helping the pain. She denies any fever or chills. She denies history of abscesses in the past. She denies any history of diabetes, or any immunocompromise disease. Home Medications: Previous Rx's Medication Instructions Recorded Last Taken Type Docusate Sodium [Colace] 100 mg PO BID PRN #30 capsule 09/24/18 Unknown Rx Ferrous Sulfate [Ferrous Sulfate 324 mg PO BID #60 tablet. 09/24/18 Unknown Rx 324 MG] Ibuprofen [Motrin] 800 mg PO Q8HR PRN #90 tablet 09/24/18 Unknown Rx labetaloL [Labetalol 200mg TAB] 200 mg PO BID #60 tablet 09/24/18 Unknown Rx Clindamycin [Clindamycin CAP] 300 mg PO Q8H 10 Days #30 cap 01/07/19 Unknown Rx HYDROcodone/APAP 10-325 [Braxton 1 each PO Q6HR PRN #12 tablet 01/14/19 Unknown Rx 10/325] Allergies/Adverse Reactions: Allergies Allergy/AdvReac Type Severity Reaction Status Date / Time No Known Allergies Allergy Unverified 02/25/18 15:26 ED Review of Systems ROS: Stated complaint: BOIL ON BUTTOCK Other details as noted in HPI Comment: All other systems reviewed and negative Skin: rash, other (abscesss, pilonidal area) ED Past Medical Hx - Past Medical History Previous Medical History?: No Hx Hypertension: No Hx Congestive Heart Failure: No Hx Diabetes: No Hx Deep Vein Thrombosis: No Hx Renal Disease: No Hx Sickle Cell Disease: No Hx Seizures: No Hx Asthma: No Hx COPD: No Hx HIV: No - Surgical History Past Surgical History?: No - Social History Smoking Status: Current Every Day Smoker - Medications Home Medications: Home Medications Medication Instructions Recorded Confirmed Last Taken Type Docusate Sodium [Colace] 100 mg PO BID PRN #30 capsule 09/24/18 Unknown Rx Ferrous Sulfate [Ferrous Sulfate 324 mg PO BID #60 tablet.dr 09/24/18 Unknown Rx 324 MG] Ibuprofen [Motrin] 800 mg PO Q8HR PRN #90 tablet 09/24/18 Unknown Rx labetaloL [Labetalol 200mg TAB] 200 mg PO BID #60 tablet 09/24/18 Unknown Rx Clindamycin [Clindamycin CAP] 300 mg PO Q8H 10 Days #30 cap 01/07/19 Unknown Rx HYDROcodone/APAP 10-325 [Braxton 1 each PO Q6HR PRN #12 tablet 01/14/19 Unknown Rx 10/325] ED Abscess Boil Physical Exam - Exam General: Vital signs noted. No distress. Alert and acting appropriately. Front/Back of Body, Lg (Color): 1 - approximately 4cm by 5cm indurated, fluctuant area with mild erythema noted. Previous incision appears closed without any drainage. Area is severely ttp. No streaking erythema noted. Exam: Yes Tenderness, Yes Fluctuance, Yes Surrounding Cellulites/Erythema, Yes Normal Neurologic Exam, Yes Normal Circulation, No Lymphangitis, No Crepitation, No Heart Murmur I & D Note - I & D Note I & D Note: Location -- Pilonidal. Anesthesia - Lidocaine 1% with epi. Blade -- 11 inch. Drainage -- Large amount of pus drained. Packing -- 1/2 inch iodoform placed. Patient tolerated procedure well, without any complications. ED Course Vital Signs 01/14/19 09:00 Temperature 98.8 F Pulse Rate 64 Respiratory 16 Rate Blood Pressure 125/76 O2 Sat by Pulse 97 Oximetry Critical care attestation.: If time is entered above; I have spent that time in minutes in the direct care of this critically ill patient, excluding procedure time. ED Disposition Clinical Impression: Pilonidal abscess Disposition: - TO HOME OR SELFCARE Is pt being admited?: No Does the pt Need Aspirin: No Condition: Stable Instructions: Abscess Incision and Drainage (ED) Additional Instructions: Do not remove packing until you follow up with clinic in 2 days. Continue and finish the clindamycin. Take pain medication as prescribed. Prescriptions: HYDROcodone/APAP 10-325 [Braxton 10/325] 1 each PO Q6HR PRN #12 tablet PRN Reason: Pain Referrals: PRIMARY CARE, [Primary Care Provider] - 3-[address] [facility] [Provider Group] - 2-3 Days (Follow-up in 2 days for wound check. ) Time of Disposition: 12:17
[2019-01-14] MEDS ORDERED: ONDANSETRON 4 MG ODT TAB PO ONE (10:17)
[2019-01-14 12:39] VITALS: BP 121/74
== END 2019-01-14 12:38 | disposition home or self-care (01) ==
LOC: ED 08:48
DX: L05.01 Pilonidal cyst with abscess (principal); F17.200 Nicotine dependence, unspecified, uncomplicated; Z79.899 Other long term (current) drug therapy
CPT/HCPCS: 10080; 96372; 99282; J2270; Q0162